=== PATIENT | male | born 1995 | race Caucasian/White ===

== ENCOUNTER 2019-01-16 06:49 | Emergency (ER) | payer OTHER ==
[~2019-01-16] VITALS: Ht 185.4 cm; Wt 71.8 kg
[2019-01-16 06:55] VITALS: TEMP 97.2
[2019-01-16] MEDS ORDERED: PERCOCET 325 MG1 TA2 PO (07:14)
[2019-01-16] MEDS ORDERED: PHENERGAN 25 TA25 MG PO (07:15)
[2019-01-16] MEDS ORDERED: FLOMAX 0.40.4 MG/CAP PO (07:15)
[2019-01-16 07:30] LABS: BASO % 0.5 % (0.0-2.0); EOS # 0.2 (0.0-0.7); EOS % 2.2 % (0-4.0); GRAN # 3.8 (1.4-6.5); GRAN % 48.5 % (42.2-75.2); HEMATOCRIT 44.3 % (42.0-52.0); LYMPH # 3.2 (1.2-3.4); LYMPH % 40.4 % (20.0-51.0); MEAN CELL VOLUME 88 fl (80.0-100.0); MEAN CORPUSCULAR HEMOGLOBIN 30 pg (27.0-31.0); MEAN CORPUSCULAR HGB CONC 34 g/dl (33.0-37.0); MEAN PLATELET VOLUME 9.6 fl (7.4-10.4); MONO # 0.6 (0.1-0.6); MONO % 7.9 % (1.7-9.3); PLATELET COUNT 240 K/mm3 (130-400); RED BLOOD COUNT 5.02 M/mm3 (4.20-5.60); REDCELL DISTRIBUTION WIDTH-CV 12.2 % (11.5-14.5)
[2019-01-16 07:37] LABS: ALBUMIN 4.7 gm/dL (3.5-5.0); BILIRUBIN,TOTAL 1.5 mg/dL (0.0-1.0); CALCIUM 9.4 mg/dL (8.4-10.2); CREATININE, serum 1.02 (0.66-1.25); POTASSIUM 3.8 mmol/L (3.4-5.0); TOTAL PROTEIN 7.8 gm/dL (6.4-8.2)
[2019-01-16 08:19] LABS: COLLECTION METHOD CLEAN CATCH
[2019-01-16 08:39] LABS: AMORPHOUS CRYSTAL Present /uL; MUCOUS Present /lpf; PH 8 (5-8); SQUAMOUS EPITHELIAL None Seen /hpf; URINE APPEARANCE Hazy; URINE BACTERIA None Seen /hpf; URINE BILIRUBIN Negative (NEGATIVE); URINE BLOOD 2+ (NEGATIVE); URINE COLOR Yellow; URINE GLUCOSE Negative (NEGATIVE); URINE KETONE 1+ (NEGATIVE); URINE LEUKOCYTE ESTERASE Negative (NEGATIVE); URINE NITRATE Negative (NEGATIVE); URINE PROTEIN(semi-quant) 1+ (NEGATIVE); URINE RBC >50 /hpf; URINE UROBILINOGEN Negative (NEGATIVE)
[2019-01-16 08:52] VITALS: BP 111/78; PULSE 78
== END 2019-01-16 08:52 | disposition home or self-care (01) ==
LOC: COL.ER 06:49
PROVIDERS: Emergency Medicine
DX: N20.1 Calculus of ureter (principal); F17.210 Nicotine dependence, cigarettes, uncomplicated; Z84.1 Family history of disorders of kidney and ureter
CPT/HCPCS: J1885; J2270; J2405; J2550; J7030; Q9967

== ENCOUNTER 2019-01-18 09:14 | Emergency (ER) | payer OTHER ==
[~2019-01-18] VITALS: Ht 188 cm; Wt 72.7 kg
[~2019-01-18 09:14] MED LIST: FLOMAX 0.40.4 MG/CAP PO; PERCOCET 325 MG1 TA2 PO; PHENERGAN 25 TA25 MG PO
[2019-01-18 09:47] LABS: BASO % 0.4 % (0.0-2.0); EOS # 0.1 (0.0-0.7); GRAN # 7.4 (1.4-6.5); GRAN % 76.6 % (42.2-75.2); HEMATOCRIT 44.3 % (42.0-52.0); LYMPH # 1.3 (1.2-3.4); LYMPH % 13.6 % (20.0-51.0); MEAN CELL VOLUME 88 fl (80.0-100.0); MEAN CORPUSCULAR HEMOGLOBIN 30 pg (27.0-31.0); MEAN CORPUSCULAR HGB CONC 34 g/dl (33.0-37.0); MEAN PLATELET VOLUME 9.5 fl (7.4-10.4); MONO # 0.8 (0.1-0.6); PLATELET COUNT 202 K/mm3 (130-400); RED BLOOD COUNT 5.02 M/mm3 (4.20-5.60); REDCELL DISTRIBUTION WIDTH-CV 11.9 % (11.5-14.5)
[2019-01-18] MEDS ORDERED: ADDERALL7.5 MG PO (09:52)
[2019-01-18 09:57] LABS: CALCIUM 9.2 mg/dL (8.4-10.2); CREATININE, serum 1.12 (0.66-1.25); POTASSIUM 3.5 mmol/L (3.4-5.0)
[2019-01-18 10:45] LABS: COLLECTION METHOD CLEAN CATCH
[2019-01-18 11:02] LABS: AMORPHOUS CRYSTAL Present /uL; MUCOUS Present /lpf; PH 7 (5-8); SQUAMOUS EPITHELIAL None Seen /hpf; URINE APPEARANCE Cloudy; URINE BACTERIA None Seen /hpf; URINE BILIRUBIN Negative (NEGATIVE); URINE BLOOD Negative (NEGATIVE); URINE CALCIUM OXALATE CRYSTAL Present /hpf; URINE COLOR Yellow; URINE GLUCOSE Negative (NEGATIVE); URINE KETONE 2+ (NEGATIVE); URINE LEUKOCYTE ESTERASE Negative (NEGATIVE); URINE NITRATE Negative (NEGATIVE); URINE PROTEIN(semi-quant) Negative (NEGATIVE); URINE UROBILINOGEN Negative (NEGATIVE)
[2019-01-18] MEDS ORDERED: NORCO 325 MG-51 TAB PO (13:38)
[2019-01-18 14:03] VITALS: BP 119/71; PULSE 64; TEMP 98.7
== END 2019-01-18 14:16 | disposition home or self-care (01) ==
LOC: COL.ER 09:14
PROVIDERS: Emergency Medicine
DX: N20.1 Calculus of ureter (principal); Z87.442 Personal history of urinary calculi
CPT/HCPCS: J0780; J1170; J1885; J7030

== ENCOUNTER 2019-01-24 11:52 | Day surgery (SDC) | payer OTHER ==
[~2019-01-24] VITALS: Ht 185.4 cm; Wt 71.7 kg
[~2019-01-24 11:52] MED LIST changes: +ADDERALL7.5 MG PO; +NORCO 325 MG-51 TAB PO
[2019-01-24 12:48] VITALS: BP 124/76; PULSE 74; TEMP 97.7
[2019-01-24] MEDS ORDERED: ADVIL200 MG PO (13:06)
--- NOTE | 2019-01-24 13:07 | NUR ---
TO RM AT 1220- CALL LIGHT IN REACH PATIENT DOES NOT HAVE ANYONE WITH HIM AT THIS TIME. MOTHER MAY BE DRIVING FROM
--- NOTE | 2019-01-24 14:29 | NUR ---
PATIENT CALLED AND STATED IS STARTING TO COME BACK. RECEIVED MORPHINE 3MG IV
--- NOTE | 2019-01-24 16:08 | NUR ---
Patient is complaining of pain at 6/10 and Morphine 3mg IV given. IV fluids infusing and mother in room. Siderails up x 2.
[2019-01-24 18:02] VITALS: TEMP 98.9
[2019-01-24 20:40] VITALS: BP 113/54; PULSE 77
[2019-01-24 21:40] VITALS: BP 112/57; PULSE 72
--- NOTE | 2019-01-24 22:50 | NUR ---
PT UP SBOUT ROOM WALKING TO RR MULTIPLE TIMES, PER SHIFT REPORT PT WALKED IN HALLWAY. C/O OF BURNING WITH URINATION, DENIES ANY OTHER DISCOMFORT. PT ABLE TO PROGRESS DIET W/O N/V. PT D/C HOME WITH MOTHER. INT REMOVE. D/C PAPERWORK AND EDUCATION EXPLAINED AND GIVEN TO PT. SIGNATURE PAGE IN CHART AND MD OFFICE PHONE NUMBER GIVEN TO PT.
== END 2019-01-25 07:31 | disposition home or self-care (01) ==
LOC: SDCO 11:52 → MEDICAL 19:00 → SDCO 01-25 07:31
DX: N20.2 Calculus of kidney with calculus of ureter (principal); Z79.891 Long term (current) use of opiate analgesic; Z79.899 Other long term (current) drug therapy; Z80.8 Family history of malignant neoplasm of other organs or systems; Z80.3 Family history of malignant neoplasm of breast
CPT/HCPCS: OP; C1769; J0690; J1100; J2270; J2405; J2704; J3010; J7120; Q9967